=== PATIENT | female | born 1985 | race Caucasian/White ===

== ENCOUNTER 2020-11-24 09:16 | Emergency (ER) | payer OTHER, SELFPAY ==
--- NOTE | ~2020-11-24 | XR_ITS ---
XR foot LT min 3V DATE: 11/24/2020 09:46 INDICATION: Mental splinter in plantar aspect of left foot for one week TECHNIQUE: 5 views COMPARISON: None FINDINGS: No radiopaque or metallic foreign body is identified. No subcutaneous emphysema. No fracture or dislocation, periosteal reaction or bone destruction. IMPRESSION: Negative Reviewed, dictated and finalized at location B. IMPRESSION: Negative
[2020-11-24 09:20] VITALS: BP 146/89; PULSE 103; RESP 18; TEMP 36.7; O2SAT 100
--- NOTE | 2020-11-24 09:49 | ED.LOWEXIN ---
HPI - Extremity Injury (Lower) General Chief Complaint: Extremity Injury, Lower Stated Complaint: Object stuck in left Foot Source: patient and RN notes reviewed Limitations: no limitations History of Present Illness HPI Narrative: The patient, previously mostly healthy, presents with foot discomfort. Patient states she has a least about half week history of left foot discomfort between her plantar fourth and fifth metatarsals where she believes she stepped on a metal foreign body then. She was able to remove another tiny metallic fragment, but not this one; no redness, fever, discharge, streaking.Discussed plan to x-ray, unroof and explore that area and if no foreign body found- refer to podiatry while continuing soaking. Related Data Allergies Allergy/AdvReac Type Severity Reaction Status Date / Time No Known Allergies Allergy Verified 11/24/20 09:34 Review of Systems Review of Systems: The patient has been informed that they may have pre-hypertension or Hypertension based on a BP reading in the department. I recommend that the patient call the primary care provider listed on their discharge instructions or a physician of their choice this week to arrange follow up for further evaluation of possible pre-hypertension or Hypertension General/Constitutional: No weight loss,fever Eyes: N0: Redness,discharge Ears/Nose/Throat: No: Epistaxis,ear discharge Respiratory: Denies: Hemoptysis Gastrointestinal: No Vomiting, Bleeding-rectal Skin: No Lumps, eruption Neurologic: No Focal Weakness,Sz Hematologic: Denies: Petechiae/Purpura Psychiatric: No: Suicida ideationl All Other Systems: Reviewed and Negative PMFSH Comments At time of signature, agree with nursing past medical, surgical, social and family history. There is no relevant family history pertinent to the presenting complaint Exam Narrative: General Appearance: Well appearing, Conjunctiva clear Mouth/Throat: Normal appearing, Normal lips,: Supple Respiratory: Airway patent, No respiratory distress MS foot: Normal strength (mostly intact, almost unlimited flexion/extension, Plantar tenderness 4-5 MTPJ area, with mild decreased ROM), No swelling , Other (no anterior drawer, no collateral laxity, no Achilles tenderness, no fifth MT tenderness) Skin: Warm, Dry, Normal color Neurological: A&O x3, Speech clear, CN II-XII intact Psychiatric: Normal mood, Normal affect Course Course Emergency Course: Films visualized, interpreted by radiologist, agree, normal see report Vital Signs Vital signs: Vital Signs Temperature 98.1 F 11/24/20 09:20 Pulse Rate 103 H 11/24/20 09:20 Respiratory Rate 18 11/24/20 09:20 Blood Pressure 146/89 H 11/24/20 09:20 Pulse Oximetry 100 11/24/20 09:20 Temperature 98.1 F 11/24/20 09:20 Pulse Rate 103 H 11/24/20 09:20 Respiratory Rate 18 11/24/20 09:20 Blood Pressure 146/89 H 11/24/20 09:20 Pulse Oximetry 100 11/24/20 09:20 Procedures Foreign Body Removal Foreign Body #1: Foreign Body Removal Date: 11/24/20 Site: left and foot Description of foreign body: other (Probable metal) Sedation/Analgesia: none and other (topical EMNLA, LET used) Technique: manual removal and incision made to facilitate removal Confirmed by:: radiograph (No FB seen on PRE-procedure x-ray) Complications: pain (Patient declines injectable anesthetic, deep exploration) Post-procedure exam: awake, alert Discharge Plan Discharge Clinical Impression: Puncture wound Patient Disposition: Home, Self-Care Condition: Stable Instructions: Soft Tissue Foreign Body (ED) Additional Instructions: See podiatry in follow-up; may take your own home pain meds Prescriptions: New mupirocin 2 % ointment 1 applic TOPICAL TID Qty: 30 RF: 0 cephalexin 500 mg capsule 1,000 mg PO Q12H Qty: 12 RF: 0 Follow-up/Referrals: PHYSICIAN,[facility] [Primary Care Provider
[2020-11-24] MEDS: LIDOCAINE/PRILOCAINE CREAM 2.5-2.5% TUBE 1 EACH TOPICAL (10:00)
[2020-11-24] MEDS: LIDOCAINE, EPINEPHRINE, TETRACAINE VISCOUS SOLN 3 ML TOPICAL (10:30)
== END 2020-11-24 11:30 | disposition home or self-care (01) ==
PROVIDERS: Emergency Provider Emergency Medicine
DX: S91.332A Puncture wound without foreign body, left foot, initial encounter (principal)
CPT/HCPCS: 73630; 99213; G0463

== ENCOUNTER 2023-07-09 19:30 | Emergency (ER) | payer OTHER, SELFPAY ==
[2023-07-09 19:38] VITALS: BP 139/93; PULSE 88; RESP 17; TEMP 36.3; O2SAT 100
== END 2023-07-09 20:22 | disposition left against medical advice (07) ==
LOC: ANHED 20:03
DX: S61.210A Laceration without foreign body of right index finger without damage to nail, initial encounter (principal)
CPT/HCPCS: 99199

== ENCOUNTER 2023-08-03 18:04 | Emergency (ER) | payer OTHER, SELFPAY ==
[2023-08-03 18:13] VITALS: BP 128/82; PULSE 95; RESP 16; TEMP 36.7; O2SAT 100
--- NOTE | 2023-08-03 18:23 | ED.EXTPRO ---
HPI - Extremity Problem General Chief complaint: Extremity Problem,Nontraumatic Stated complaint: R THUMB PAIN Time Seen by Provider: 08/03/23 18:23 Source: patient and RN notes reviewed Mode of arrival: ambulatory Limitations: no limitations History of Present Illness HPI Narrative: 37-year-old female presents with concern for pain, swelling to distal 1st digit of the right hand. She reports she is right-handed. Reports the beginning of the year she noticed a cyst on the distal joint. Reports in the past few days with become swollen, more tender around the cyst. She denies injury or trauma. She denies red streaking, fever, general malaise. MD Complaint: extremity pain Related Data Home Medications Medication Instructions Recorded Confirmed losartan 50 mg-hydrochlorothiazide tablet 08/03/23 08/03/23 12.5 mg tablet rosuvastatin 20 mg tablet mg 08/03/23 tramadol 50 mg tablet mg 08/03/23 Allergies Allergy/AdvReac Type Severity Reaction Status Date / Time No Known Allergies Allergy Verified 08/03/23 18:22 Review of Systems Review of Systems: CONSTITUTIONAL: Denies malaise, chills, sweats, or fever. CARDIOVASCULAR: Denies chest pain, palpitations, or edema. RESPIRATORY: Denies cough or dyspnea. SKIN: Denies rash or itching, bruising, redness, swelling. MUSCULOSKELETAL: Reports pain, swelling to the 1st digit of the right hand NEUROLOGIC: Denies numbness, weakness All systems reviewed & are unremarkable except as noted in HPI and below PMFSH Comments At time of signature, agree with nursing past medical, surgical, social and family history. There is no relevant family history pertinent to the presenting complaint Exam Narrative: GENERAL: Well-appearing, well-nourished, and in no acute distress. HEAD: Normocephalic, atraumatic. EYES: PERRLA, conjunctivae clear NECK: Supple. CHEST: Speaks in full sentences. No respiratory distress. HEART: Regular rate and rhythm. Normal and equal peripheral pulses. EXTREMITIES: 1st digit of the right hand has grossly normal strength and sensation, gross normal range of motion. Mild edema without erythema, induration, warmth, ecchymosis. Normal sensation with sensitivity to light touch and pain. No point tenderness. Palpable non fluctuant cyst noted above the DIP joint of the 1st digit. No open wounds, no skin tenting, no devitalized tissue or atrophy, no trophic changes, no obvious deformity, alignment normal, nearby joints and structures intact. Distal pulses palpable and equal bilaterally, skin warm, dry, pink. Capillary refill less than 3 seconds. SKIN: Warm, dry, no rash. NEURO: Alert and oriented x3. PSYCH: Normal mood and affect Course Course Emergency Course: Patient is aware of diagnosis, understands and agrees to treatment plan. Anticipatory guidance given. Patient agrees to follow-up as directed and is aware of reasons to seek care at the emergency department. Portions of this record may have been created with voice recognition software Level of Care: Express Care Visit Vital Signs Vital signs: Vital Signs Temperature 98.1 F 08/03/23 18:13 Pulse Rate 95 08/03/23 18:13 Respiratory Rate 16 08/03/23 18:13 Blood Pressure 128/82 08/03/23 18:13 Pulse Oximetry 100 08/03/23 18:13 Temperature 98.1 F 08/03/23 18:13 Pulse Rate 95 08/03/23 18:13 Respiratory Rate 16 08/03/23 18:13 Blood Pressure 128/82 08/03/23 18:13 Pulse Oximetry 100 08/03/23 18:13 Reviewed. MDM - Extremity (Nontraumatic) MDM Narrative Medical decision making narrative: Exam findings show no acute concerns or changes; patient is non-toxic appearing and is in no distress. Patient is appropriate for outpatient treatment and follow-up. Differential Diagnosis Differential diagnosis: Likely gout, cellulitis and other (Cyst, tendinitis) Critical Care Time Critical Care Time Critical Care Time: No Discharge Plan Discharge Clinical Impression: T
== END 2023-08-03 18:38 | disposition home or self-care (01) ==
PROVIDERS: Emergency Provider Nurse Practitioner; PCP Family Medicine
DX: M77.8 Other enthesopathies, not elsewhere classified (principal)
CPT/HCPCS: 99213; G0463